=== PATIENT | male | born 1945 | race Caucasian/White ===

== ENCOUNTER 2022-04-07 10:13 | Day surgery (SDC) | payer OTHER ==
[~2022-04-07] VITALS: Ht 172.7 cm; Wt 90.3 kg
[~2022-04-07 10:13] MED LIST: ALLO100 PO; ASPI81CH PO; ATOR40TA PO; AZAT50 PO; DIGO.25 PO; FINA5 PO; GLIP5 PO; ISODIN10 PO; LISI20 PO; METF500 PO; METO100 PO; METO50ER PO; OXYB5 PO; PRED10 PO; PYRI60 PO; SIMV80 PO; SPIR25 PO; TAMS.4ER
[2022-04-07] MEDS ORDERED: ENTRESTO 24 MG1 EAC2 (11:11)
== END 2022-04-07 13:14 | disposition home or self-care (01) ==
LOC: ORSCSDS 10:13
PROVIDERS: Surgery
PROC: 0DBM8ZX Excision of Descending Colon, Via Natural or Artificial Opening Endoscopic, Diagnostic (ICD-10-PCS; principal; 2022-04-07 11:45)
PROC: 0DBN8ZX Excision of Sigmoid Colon, Via Natural or Artificial Opening Endoscopic, Diagnostic (ICD-10-PCS; principal; 2022-04-07 11:45)
PROC: 0DBK8ZX Excision of Ascending Colon, Via Natural or Artificial Opening Endoscopic, Diagnostic (ICD-10-PCS; principal; 2022-04-07 11:45)
DX: Z86.010 Personal history of colon polyps (principal); K63.5 Polyp of colon; I50.22 Chronic systolic (congestive) heart failure; Z95.0 Presence of cardiac pacemaker; G47.33 Obstructive sleep apnea (adult) (pediatric); E11.9 Type 2 diabetes mellitus without complications; G70.00 Myasthenia gravis without (acute) exacerbation; Z79.84 Long term (current) use of oral hypoglycemic drugs; Z79.899 Other long term (current) drug therapy
CPT/HCPCS: 82947; 88305; J2370; J2704; J7120

== ENCOUNTER 2024-08-21 12:24 | Emergency (ER) | payer OTHER ==
[~2024-08-21] VITALS: Ht 175.3 cm; Wt 81.7 kg
[~2024-08-21 12:24] MED LIST changes: +ENTRESTO 24 MG1 EAC2
[2024-08-21 12:29] VITALS: BP 124/90
== END 2024-08-21 15:40 | disposition home or self-care (01) ==
LOC: ER 12:24
DX: T17.228A Food in pharynx causing other injury, initial encounter (principal); I10 Essential (primary) hypertension; E11.9 Type 2 diabetes mellitus without complications; I50.9 Heart failure, unspecified; E78.5 Hyperlipidemia, unspecified; Z87.891 Personal history of nicotine dependence; Z88.6 Allergy status to analgesic agent; Z88.8 Allergy status to other drugs, medicaments and biological substances; Z79.85 Long-term (current) use of injectable non-insulin antidiabetic drugs; Z79.899 Other long term (current) drug therapy; Z79.02 Long term (current) use of antithrombotics/antiplatelets; Z79.82 Long term (current) use of aspirin; Z79.84 Long term (current) use of oral hypoglycemic drugs
CPT/HCPCS: 70360; 99283-25